=== PATIENT | male | born 2000 | race Caucasian/White ===

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

== ENCOUNTER 2023-09-12 12:35 | Emergency (ER) | payer BC, MEDICAID, SELFPAY ==
[2023-09-12 12:37] VITALS: BP 139/81; PULSE 82; RESP 16; TEMP 36.7; O2SAT 99; BMI 22.4
--- NOTE | 2023-09-12 13:01 | RAD_ITS ---
STUDY: X-RAY CHEST REASON FOR EXAM: Male, 22 years old. CHEST PAIN TECHNIQUE: Single AP portable view of the chest. COMPARISON: None. FINDINGS: The lungs are clear and expanded. There is no demonstrated pleural abnormality. Normal size heart. Normal mediastinum and sonny. Normal visualized pulmonary arteries. Normal visualized aortic arch and descending thoracic aorta. Normal visualized thoracic spine. Normal visualized ribs, clavicles, and shoulders. There is no demonstrated abnormality of the visualized soft tissue structures of the upper abdomen. RAD/Chest 1 View (Portable) IMPRESSION: Normal x-ray examination of the chest. Electronically Signed: Lloyd Lutz MD at 13:19 EDT ,
--- NOTE | 2023-09-12 13:01 | EKG12_ITS ---
Test Reason : CP Blood Pressure : / mmHG Vent. Rate : 075 BPM Atrial Rate : 075 BPM P-R Int : 148 ms QRS Dur : 086 ms QT Int : 352 ms P-R-T Axes : 055 088 051 degrees QTc Int : 393 ms Normal sinus rhythm with sinus arrhythmia Normal ECG Confirmed by Everett Marie ([id number]), international editorial producer LIEN PHILLIPS ([id number]) on 09/13/2023 11:21:34 AM Referred By: BENJA/NATACHA Confirmed By:Everett Marie
[2023-09-12 13:16] LABS: Absolute Lymphocyte Count 2.05 X10^3/uL (0.83-4.51); Absolute Neutrophil Count 2.8 X10^3/uL (2.0-7.7); Basophil# 0.03 X10^3/uL; Basophil% 0.5 % (0-1); Eosinophil# 0.59 X10^3/uL; Eosinophils% 9.7 % (0-5); Hematocrit 44.1 % (40-54); Hemoglobin 14.8 g/dL (13.0-16.5); Lymphocyte # 2.05 X10^3/ul (0.83-4.51); Lymphocyte % 33.6 % (19-41); Mean Corp Hgb Conc 33.6 g/dL (32-36); Mean Corpuscular Hgb 28.7 pg (27.0-32.0); Mean Corpuscular Volume 85.5 fL (80-94); Monocyte# 0.64 X10^3/uL; Monocyte% 10.5 % (0-10); NRBC Flagged by Analyzer 0 % (0-5); Neutrophil # 2.78 X10^3/uL (2.7-7.7); Neutrophil % 45.5 % (47-70); Platelet Count 277 K/mm3 (150-450); RBC Distribution Width CV 12.5 % (11.6-14.6); RBC Distribution Width SD 39.1 fl (35.1-43.9); Red Blood Count 5.16 M/mm3 (4.6-6.2); White Blood Count 6.1 K/mm3 (4.4-11.0)
[2023-09-12 13:25] LABS: Anion Gap 5 (5-15); BUN 18 mg/dL (7-18); BUN/Creat Ratio 16.2 RATIO (10-20); Calcium,Total 9.5 mg/dL (8.5-10.1); Chloride 104 mmol/L (98-107); Creatinine, Serum 1.11 mg/dL (0.70-1.30); EST Glomerular Filtration Rate 89 mL/min (>60); Est Glom Filt Rate - Afr Amer 108 mL/min (>60); Estimated Creatinine Clearance 103.52 ml/min; Glucose 85 mg/dL (74-106); Potassium 3.7 mmol/L (3.5-5.1); Sodium Level 139 mmol/L (136-145); Troponin-I HS (w/2H Reflex) < 3 pg/mL (3.0-78.0)
[2023-09-12 13:36] VITALS: BP 133/76; PULSE 82; RESP 16; O2SAT 98
[2023-09-12 14:00] VITALS: BP 128/76; PULSE 80; RESP 16; O2SAT 98
--- NOTE | 2023-09-12 14:11 | EDS_ITS ---
HPI <INDIANA Fried - Last Filed: 09/12/23 15:58> History of Present Illness Chief Complaint: Shortness of Breath Narrative Narrative: Patient presenting today due to left-sided chest pressure and mild shortness of breath that he has had intermittently over the past week. This is nonexertional. He reports that he was using a vape regularly and felt like it was exacerbating his symptoms so he stopped using it 1 week ago. He denies any personal cardiac history or history of sudden cardiac in the family. He denies a PMH of any chronic health conditions and reports that he is healthy otherwise. He denies fevers, chills, cough, and recent illness. PE Risk Factors: Negative for Cancer, Prior DVT or PE, Recent immobilization, Recent surgery or Recent travel PFSH <INDIANA Fried - Last Filed: 09/12/23 15:58> [facility] Home Medications ?Medication ?Instructions ?Recorded ?Last Taken ?Type NK 11/07/20 Unknown History Allergy/AdvReac Type Severity Reaction Status Date / Time No Known Allergies Allergy Verified 09/12/23 12:39 Social History Smoking Status: Never smoker ROS <INDIANA Fried - Last Filed: 09/12/23 15:58> ROS ED Constitutional Constitutional ED: Denies chills or fever(s) Cardiovascular Cardiovascular: Reports chest pain; Denies palpitations or racing heartbeat Respiratory/Chest Respiratory/Chest: Reports dyspnea; Denies cough or wheezing Gastrointestinal Gastrointestinal: Denies abdominal pain, nausea or vomiting Musculoskeletal Musculoskeletal: Denies arthralgias or myalgias Integumentary Denies rash Neurologic Neurologic: Denies weakness EXAM <INDIANA Fried - Last Filed: 09/12/23 15:58> Physical Exam Const Vital Signs: 09/12/23 12:37 09/12/23 13:01 09/12/23 13:36 Temperature 98.1 F Temperature Source Temporal Pulse Rate 82 82 Respiratory Rate 16 16 Respiratory Effort Respiratory Depth Respiratory Pattern Blood Pressure 139/81 H 133/76 H Blood Pressure Mean 100 95 Pulse Ox 99 98 Oxygen Delivery Method Room Air Room Air Room Air 09/12/23 14:00 09/12/23 14:32 Temperature Temperature Source Pulse Rate 80 Respiratory Rate 16 Respiratory Effort Normal Non-Labored Respiratory Depth Normal Respiratory Pattern Normal Blood Pressure 128/76 H Blood Pressure Mean 93 Pulse Ox 98 Oxygen Delivery Method Room Air Positive well nourished, well developed and no apparent distress General Appearance ED: well developed HEENT Reports normocephalic and head/scalp atraumatic Mouth ED: Yes moist mucous membranes normal Eyes PERRL and EOMs intact bilaterally Neck full ROM and supple Chest Wall inspection of chest normal Chest Narrative: Minimal reproducible sternal and left parasternal pain. Resp normal respiratory effort and clear to auscultation bilaterally Cardio regular rate and regular rhythm GI soft to palpation, non-tender, non-distended and no masses Back/Spine normal ROM and normal to inspection Extremity normal to inspection and full ROM Neuro oriented x3, CN's II-XII intact bilaterally, moves all extremities, no focal motor deficits and no sensory deficits noted Sensorium / Orientation: awake and alert Psych mental status grossly normal and thought process normal Skin no rashes or lesions noted and no wounds <Dr. Rodrick Paz DO - Last Filed: 09/12/23 15:52> Physical Exam Const Vital Signs: 09/12/23 12:37 09/12/23 13:01 09/12/23 13:36 Temperature 98.1 F Temperature Source Temporal Pulse Rate 82 82 Respiratory Rate 16 16 Respiratory Effort Respiratory Depth Respiratory Pattern Blood Pressure 139/81 H 133/76 H Blood Pressure Mean 100 95 Pulse Ox 99 98 Oxygen Delivery Method Room Air Room Air Room Air 09/12/23 14:00 09/12/23 14:32 Temperature Temperature Source Pulse Rate 80 Respiratory Rate 16 Respiratory Effort Normal Non-Labored Respiratory Depth Normal Respiratory Pattern Normal Blood Pressure 128/76 H Blood Pressure Mean 93 Pulse Ox 98 Oxygen Delivery Method Room Air [facility] <INDIANA Fried - Last Filed: 09/12/23 15:58> [facility] Narrative Medical decision making narrative: Patient presenting with intermittent chest pressure and shortness of breath has had over the past week. He is well-appearing and in no acute distress, vitals are unremarkable. Patient is PERC negative, low suspicion for PE. Cardiac workup was obtained, CBC, BMP, and troponin are unremarkable. EKG is normal sinus rhythm. Chest x-ray negative for pneumothorax, infiltrate, and other cardiopulmonary abnormality. Patient was counseled on vaping cessation. I encouraged that he follow-up with his PCP and he will be discharged home in stable condition. Patient and family comfortable with plan. Lab Data Attestation: I reviewed the patient's lab results. Labs: Laboratory Results - last 24 hr 09/12/23 12:45 WBC 6.1 RBC 5.16 Hgb 14.8 Hct 44.1 MCV 85.5 MCH 28.7 MCHC 33.6 RDW Std Deviation 39.1 RDW Coeff of Telma 12.5 Plt Count 277 MPV 8.0 Immature Gran % (Auto) 0.200 Neut % (Auto) 45.5 L Lymph % (Auto) 33.6 [place] % (Auto) 10.5 H Eos % (Auto) 9.7 H Baso % (Auto) 0.5 Absolute Neuts (auto) 2.8 Absolute Lymphs (auto) 2.05 Nucleated RBC % 0 Sodium 139 Potassium 3.7 Chloride 104 Carbon Dioxide 30.0 Anion Gap 5 BUN 18 Creatinine 1.11 Estim Creat Clear Calc 103.52 Est GFR (MDRD) Af Amer 108 Est GFR (MDRD) Non-Af 89 BUN/Creatinine Ratio 16.2 Glucose 85 Calcium 9.5 Troponin I High Sens < 3 L Radiography X-Ray: Read by ED Physician Diagnostic Testing: Clinical Impression(s) from Imaging Studies Chest X-Ray 09/12/23 13:01 IMPRESSION: Normal x-ray examination of the chest. Electronically Signed: Lloyd Lutz MD at 13:19 EDT , EKG Initial EKG: Comments: 75 bpm, normal sinus rhythm, no ST elevation, reviewed and interpreted by attending ED physician <Dr. Rodrick Paz, DO - Last Filed: 09/12/23 15:52> [facility] Lab Data Labs: Laboratory Results - last 24 hr 09/12/23 12:45 WBC 6.1 RBC 5.16 Hgb 14.8 Hct 44.1 MCV 85.5 MCH 28.7 MCHC 33.6 RDW Std Deviation 39.1 RDW Coeff of Telma 12.5 Plt Count 277 MPV 8.0 Immature Gran % (Auto) 0.200 Neut % (Auto) 45.5 L Lymph % (Auto) 33.6 [place] % (Auto) 10.5 H Eos % (Auto) 9.7 H Baso % (Auto) 0.5 Absolute Neuts (auto) 2.8 Absolute Lymphs (auto) 2.05 Nucleated RBC % 0 Sodium 139 Potassium 3.7 Chloride 104 Carbon Dioxide 30.0 Anion Gap 5 BUN 18 Creatinine 1.11 Estim Creat Clear Calc 103.52 Est GFR (MDRD) Af Amer 108 Est GFR (MDRD) Non-Af 89 BUN/Creatinine Ratio 16.2 Glucose 85 Calcium 9.5 Troponin I High Sens < 3 L Radiography Chest X-Ray - ED: 1 View, Read by ED Physician, Read by Radiologist and No Acute Disease Diagnostic Testing: Clinical Impression(s) from Imaging Studies Chest X-Ray 09/12/23 13:01 IMPRESSION: Normal x-ray examination of the chest. Electronically Signed: Lloyd Lutz MD at 13:19 EDT , Treatment and Re-Evaluation :: I have personally performed a face to face assessment of the patient and have reviewed the [place] Note. I performed a substantive portion of the visit including all aspects of the following. My bond findings include: History: Patient presents with chest pain and shortness of breath that has been constant for the past week. Patient describes it as a pressure. Patient states it is over the left side of his chest. Patient states nothing makes it better and nothing makes it worse. Patient admits to some shortness of breath. Patient also admits to some palpitations. Patient denies any fevers or chills. Patient denies any nausea or vomiting. Patient denies any diaphoresis. Patient admits to vaping nicotine but states he quit 1 week ago when this began. Exam: Vital signs are stable. Patient is afebrile. Patient is in no acute distress. Oral mucosa is pink and moist. Neck is supple. Trachea is midline. There is no JVD. Heart was regular rate and rhythm. Lungs are clear and equal bilaterally. Abdomen is soft. Bowel sounds are normal. There is no tenderness. Cranial nerves II through XII are intact. There are no focal motor or sensory deficits noted. Medical Decision Making: Differential diagnosis includes cardiac dysrhythmia, cardiac ischemia, electrolyte abnormality, pneumonia, pneumothorax, and pneumonitis. EKG will be obtained to assess for cardiac dysrhythmia and cardiac ischemia. Chest x-ray will be obtained to assess for pneumonia and pneumothorax. CBC will be obtained to assess for leukocytosis and anemia. Basic metabolic profile will be obtained to assess for electrolyte abnormality and renal function. High-sensitivity troponin will be obtained to assess for cardiac ischemia. EKG was obtained. On my independent interpretation, it showed a normal sinus rhythm with a rate of 75. LA interval, QRS interval, and QTc intervals were all normal. [place] was normal. There are no acute ST or T wave changes. Portable 1 view chest x-ray was obtained. On my independent interpretation, lung schafer are clear. There is normal cardiac silhouette. Bony thorax is normal. There is no acute process noted. Radiologist also interpreted the x-ray and agrees. CBC was reviewed and was within normal limits. Basic metabolic profile was reviewed and was within normal limits. High-sensitivity troponin was reviewed and was less than 3. Patient and family were advised of his findings. Patient was advised to stop vaping. Patient was advised of the dangers of vaping. Patient was instructed to follow-up with his primary care physician in 5 to 7 da ys. Patient and family understood and were agreeable with the plan. All questions were answered. Discharge Plan Triage Chief Complaint: Shortness of Breath ED Midlevel Provider: Rosamaria King ED Provider: Rodrick Paz Dx/Rx/DC Orders Clinical Impression: Chest pain, Shortness of breath, History of nicotine vaping Instructions: ED Chest Pain, Noncardiac Prescriptions: No Action NK Primary Care Provider: Care Physician,No Primary Referrals: Avelino Stockton MD [Non-Staff] - 5-7 Days Activity Restrictions/Additional Instructions: Follow-up with your PCP and return for any worsening of your symptoms. Print Language: Yakut Disposition Disposition: Home, Self Care Discharge Date/Time: 09/12/23 15:28
[2023-09-12 15:05] LABS: Reflex Troponin-HS? (from REC) Y
[2023-09-12 15:58] LABS: Troponin-I HS < 3 pg/mL (3.0-78.0)
== END 2023-09-12 15:28 | disposition home or self-care (01) ==
PROVIDERS: Emergency Provider Emergency Medicine; Visit Provider Emergency Medicine
DX: R06.02 Shortness of breath (principal); R07.9 Chest pain, unspecified; Z87.891 Personal history of nicotine dependence
CPT/HCPCS: 71045; 80048; 84484; 85025; 93005; 99284; A4216